=== PATIENT | female | born 1930 | race Caucasian/White ===

== ENCOUNTER 2018-05-28 17:51 | Inpatient (IN) | payer MEDICARE, MEDICAID | END 2018-06-04 15:07 | disposition home or self-care (01) | LOC: ER 17:51 → ED HOLD 05-29 06:50 → SUR 3N 05-29 19:31 | DX: J18.9 Pneumonia, unspecified organism (principal); E43 Unspecified severe protein-calorie malnutrition; J96.21 Acute and chronic respiratory failure with hypoxia; J44.1 Chronic obstructive pulmonary disease with (acute) exacerbation; Z85.118 Personal history of other malignant neoplasm of bronchus and lung; E87.6 Hypokalemia ==